=== PATIENT | male | born 1970 | race Caucasian/White ===

== ENCOUNTER 2022-09-30 22:42 | Emergency (ER) | payer MEDICARE, MEDICAID ==
[~2022-09-30] VITALS: Ht 188 cm; Wt 89.8 kg
[2022-09-30 22:48] VITALS: BP_SYST 118
--- NOTE | 2022-09-30 22:55 | NUR ---
Patient to ER bed 06 to gown for evaluation. Side rails up. Report given to [facility] [place].
[2022-09-30] MEDS ORDERED: NACL 0.9% 1,000 ML IV ONE (23:00)
--- NOTE | 2022-09-30 23:00 | NUR ---
ER at bedside examining patient.
--- NOTE | 2022-09-30 23:14 | NUR ---
PT BIBA FROM [facility], PT WAS CONSIDERED 51/50 DUE TO THROWING WOOD CHIPS AT CARS AND NOT COMPLYING OR LISTENING TO ANYONE. PT RECIEVED IM OF 50MG 0BENADRY,2MG ATIVAN, AND HADOL 5MG AT 2155, ON ARRIVAL GLUCOSE IS 399 AND HAS LOWERED FROM OVER 500 EARLIER. PT IS CURRENTLY ASLEEP, AROUSES WITH PAINFUL STIMULI, AOX1 VSS, UNLABORED EVEN RESPIRATIONS AWAITING SITTER FROM [facility] DUE TO PT 51/50 HOLD.
[2022-09-30 23:19] LABS: BASOPHILS # (AUTO) 0.1 K/uL (0.0-0.2); BASOPHILS % (AUTO) 0.7 % (0.0-2.0); EOSINOPHILS # (AUTO) 0.2 K/uL (0.0-0.4); EOSINOPHILS % (AUTO) 2.5 % (0.0-4.0); LYMPHOCYTES # (AUTO) 1.6 K/uL (1.0-5.5); LYMPHOCYTES % (AUTO) 15.8 % (20.5-51.5); MEAN CORPUSCULAR HEMOGLOBIN 30 pg (27-31); MEAN CORPUSCULAR HGB CONC 34 % (32-36); MEAN CORPUSCULAR VOLUME 88 fL (79.0-98.0); MONOCYTES # (AUTO) 0.6 K/uL (0.0-1.0); MONOCYTES % (AUTO) 6.2 % (1.7-9.3); NEUTROPHILS # (AUTO) 7.6 K/uL (1.8-7.7); NEUTROPHILS % (AUTO) 74.8 % (40.0-70.0); PLATELET COUNT (AUTO) 282 K/uL (130-430); RED BLOOD CELL COUNT(AUTO) 4.64 MIL/uL (4.2-6.2); RED CELL DISTRIBUTION WIDTH 12.6 % (9.0-15.0); WHITE BLOOD COUNT (AUTO) 10.1 K/uL (4.8-10.8)
[2022-09-30 23:25] LABS: ACETONE, SERUM NEGATIVE (NEGATIVE)
[2022-09-30 23:31] LABS: ALANINE AMINOTRANSFERASE 18 U/L (12-78); ALCOHOL, BLOOD 6 mg/dL (<10); ASPARTATE AMINOTRANSFERASE 13 U/L (10-37); CALCIUM 8.2 mg/dL (8.4-11.0); CHLORIDE 103 mmol/L (98-107); CREATININE 0.93 mg/dL (0.55-1.30); UREA NITROGEN, BLOOD 14 mg/dL (8-21)
[2022-09-30 23:44] LABS: ACETAMINOPHEN 1 ug/mL (1-30); ALBUMIN 2.8 g/dL (3.4-4.8); ANION GAP 8 (5-15); GLUCOSE 389 mg/dL (70-99); TOTAL BILIRUBIN 0.4 mg/dL (0.0-1.0)
[2022-09-30 23:47] LABS: GFR AFRICAN AMERICAN 110 mL/min (>90)
--- NOTE | 2022-09-30 23:48 | NUR ---
SITTER FROM [facility] ARRIVED, PT IS ASLEEP, VSS, NAD, EVEN UNLABORED RESPIRATIONS.
[2022-10-01] MEDS ORDERED: INSULIN REGULAR, HUMAN 100 UNITS/ML, 3 ML VIAL SUBCUT ONE (00:30)
[2022-10-01] MEDS ORDERED: INSULIN REGULAR, HUMAN 10 UNITS/0.1 ML, 3 ML VIAL ONE (00:31)
--- NOTE | 2022-10-01 00:35 | NUR ---
BLOOD GLUCOSE LEVEL 379 DR AWARE PT MEDICATED ACCORDING TO DR ORDERS, VSS, NAD, EVEN UNLABORED RESPIRATIONS, PT ASLEEP WITH SITTER AT BEDSIDE, SAFETY RAILS UP PT CONNECTED TO VS MONITOR.
--- NOTE | 2022-10-01 01:32 | NUR ---
BS 301, MADE AWARE. PT RESTING IN BED EYES CLOSED, EVEN AND UNLABORED RESP NOTED. NAD. SAFETY PRECAUTIONS IN PLACE, SITTER PRESENT AT BEDSIDE AND CONNECTED TO MONITOR.
--- NOTE | 2022-10-01 03:04 | NUR ---
PT ASLEEP VSS, SITTER AT BEDSIDE, SAFETY RAILS UP.
--- NOTE | 2022-10-01 05:49 | NUR ---
ASSISTED PT WITH URINAL, PT CONNECTED BACK TO VS MONITOR. SAFETY RAILS UP.
--- NOTE | 2022-10-01 06:53 | NUR ---
PT ASLEEP NO CHANGES, VSS, NAD, EVEN UNLABORED RESPIRATIONS SAFETY RAILS UP .SITTER AT BEDSIDE
[2022-10-01 09:19] VITALS: BP_SYST 133
--- NOTE | 2022-10-01 09:21 | NUR ---
Patient to be transferred to [facility]. Is being transferred due to higher level of care. Receiving facility has accepting physician and available space. ER physician has signed transfer form. Patient or responsible green party has agreed to transfer and signed form. Patient belongings inventoried and will be sent with patient. Copy of nursing notes, lab reports, EKG, Physicians Orders and X-rays to be sent with patient. Report called to RN at receiving facility. Receiving physician is ROCHEL[facility]. [facility] ambulance service has been called for transfer. ETA is 0900.
== END 2022-10-01 09:21 | disposition home or self-care (01) ==
LOC: SED 22:42
DX: E11.65 Type 2 diabetes mellitus with hyperglycemia (principal); Z79.899 Other long term (current) drug therapy; Z20.822 Contact with and (suspected) exposure to COVID-19
CPT/HCPCS: 99285; 87426; 80053; 82009; 82962; 85025; 36415; 93005; 96360; 96372; G0482; J7030; G0480; G0481; J1815